=== PATIENT | male | born 1990 | race Caucasian/White ===

== ENCOUNTER 2016-12-09 05:32 | Emergency (ER) | payer OTHER ==
[~2016-12-09] VITALS: Ht 188 cm; Wt 86.2 kg
[~2016-12-09 05:32] MED LIST: BACL10TA4 PO; GABA300C PO; HYDR-4452 PO; PRON INH
[2016-12-09 05:47] VITALS: BP 143/68
--- NOTE | 2016-12-09 05:48 | NUR ---
PT TAKEN TO BED 5
--- NOTE | 2016-12-09 05:50 | NUR ---
PATIENT PRESENTS TO ED WITH C/O SEVERE LOWER BACK PAIN, 04/01 . PT AAOX4, NO SOB/DISTRESS NOTED, DENIES CHEST PAIN, DENIES N/V/D; SKIN IS PINK/WARM/DRY; VSS; PATIENT POSITIONED FOR COMFORT; HOB ELEVATED; BEDRAILS UP X2; BED DOWN. ER MD MADE AWARE OF PT STATUS.
--- NOTE | 2016-12-09 05:55 | NUR ---
Dr. Onofre evaluating patient at bedside.
[2016-12-09] MEDS ORDERED: KETOROLAC 60 MG/2 ML VIAL IM ONE ×2 (06:00→06:12)
[2016-12-09] MEDS ORDERED: MORPHINE SULFATE 4 MG/ML SYR IM ONE (06:30)
[2016-12-09] MEDS ORDERED: MORPHINE SULFATE 4 MG/ML SYR ONE (06:41)
--- NOTE | 2016-12-09 07:03 | NUR ---
PT IS IN STABLE CONDITION, ENDORCED PT'S CARE TO MORNING SHIFT NURSE.
--- NOTE | 2016-12-09 07:13 | NUR ---
Patient discharged with v/s stable. Written and verbal after care instructions given and explained.Patient alert, oriented and verbalized understanding of instructions. Ambulatory with steady gait. All questions addressed prior to discharge. ID band removed. Patient advised to follow up with PMD. Rx of FLEXERIL AND NORCO given. Patient educated on indication of medication including possible reaction and side effects. Opportunity to ask questions provided and answered.
[2016-12-09 07:15] VITALS: BP 112/78
== END 2016-12-09 07:13 | disposition home or self-care (01) ==
LOC: MED 05:32
DX: S39.012A Strain of muscle, fascia and tendon of lower back, initial encounter (principal); J45.909 Unspecified asthma, uncomplicated; F17.200 Nicotine dependence, unspecified, uncomplicated; Z88.8 Allergy status to other drugs, medicaments and biological substances; X50.0XXA Overexertion from strenuous movement or load, initial encounter; Y93.89 Activity, other specified; Y92.89 Other specified places as the place of occurrence of the external cause; Y99.8 Other external cause status
CPT/HCPCS: 96372; 99284; J1885; J2270